=== PATIENT | female | born 1975 | race Caucasian/White ===

== ENCOUNTER 2018-10-07 17:48 | Emergency (ER) | payer BC, SELFPAY ==
--- NOTE | 2018-10-07 17:55 | NUR.NOTE ---
pt developed a fever Friday and a persistent cough pt called her PCP who told her she may have the flu so she came to the ER.
[2018-10-07 17:58] VITALS: BP 111/68; PULSE 108; TEMP 36.6; O2SAT 90
[2018-10-07] MEDS: Albuterol/Ipratropium 3 ML UPD VIAL 9 ML UPD ×2 (18:41→18:57)
[2018-10-07] MEDS: methylPREDNISolone SUCC 125 MG VIAL IVP (18:41)
[2018-10-07 19:20] LABS: INR 1.1 (0.9-1.1); PTT Activated 27.2 sec (21.0-31.4)
[2018-10-07 19:20] LABS: BE (Venous) -3.2 mmol/L (-3-3); HCO3 (Venous) 20 mmol/L (22-28); O2 Sat (Venous) 90 % (70-80); TCO2 (Venous) 18 mmol/L (22-29); pCO2 (Venous) 28 mm/Hg (34-47); pH (Venous) 7.47 (7.32-7.43); pO2 (Venous) 51 mm/Hg (28-44)
[2018-10-07 19:33] LABS: ALT 170 U/L (12-78); AST 204 U/L (15-37); Albumin 3.8 g/dL (3.4-5.0); Alkaline Phosphatase 129 U/L (46-116); Anion Gap 14.5 mmol/L (3-11); BUN 6 mg/dL (7-18); Bilirubin, Total 0.5 mg/dL (0.2-1.0); CO2 20.5 mmol/L (21.0-32.0); CREATININE 0.83 mg/dL (0.55-1.02); Calcium 8.9 mg/dL (8.5-10.1); Chloride 97 mmol/L (98-107); Glucose 136 mg/dL (70-100); Potassium 3.8 mmol/L (3.5-5.1); Sodium 132 mmol/L (136-145); Total Protein 8.3 g/dL (6.4-8.2)
[2018-10-07 19:46] LABS: D-Dimer 699 ng/mlFEU (<500)
[2018-10-07 19:48] LABS: Troponin I < 0.02 ng/mL (0.00-0.06)
[2018-10-07 20:13] VITALS: PULSE 116; O2SAT 95
[2018-10-07 20:15] VITALS: O2SAT 95
[2018-10-07] MEDS: Omnipaque 350 MG/ML 100 ML BTL IJ (20:29)
--- NOTE | 2018-10-07 20:32 | DI.CT_ITS ---
SYMPTOM/DIAGNOSIS: ELEVATED D DIMER, ? PE PE CHEST CT: CT angiography was performed with multi slice acquisition and multi planar and 3D reconstruction. CT angiography of the chest was performed with intravenous infusion of 100 cc's of Omnipaque 350. Images obtained through the upper abdomen show unremarkable appearance of visualized portions of the liver, spleen, pancreas, adrenals and kidneys. There is no evidence of pulmonary embolic disease. No thoracic aortic aneurysm or dissection. No mediastinal or hilar adenopathy. Tracheobronchial tree appears intact. No pleural effusion is seen. There are faint patchy areas of opacity in the lingula which may represent early pneumonia. Otherwise the lungs are clear. IMPRESSION: No evidence of pulmonary embolic disease. Findings raising the possibility of lingular pneumonia.
--- NOTE | 2018-10-07 20:45 | ED.GENADUL_ITS ---
Discharge Plan Disposition Patient Disposition: HOME Condition: Good Discharge Details Chief Complaint: Fever Clinical Impression: Pneumonia, Asthma exacerbation, Influenza A Primary Care Provider: Salvador Begum ED Provider: Franklin Verduzco Home Meds and New Rx's Prescriptions: New azithromycin 250 mg tablet 250 mg PO DAILY 4 Days Qty: 4 RF: 0 prednisone 20 mg tablet 60 mg PO DAILY 5 Days Qty: 15 RF: 0 No Action Advair Diskus 250-50 mcg/dose Blister With Device 1 inh INHALATION Q12H RF: 0 Ventolin HFA 90 mcg/actuation Hfa Aerosol Inhaler RF: 0 Discharge Instructions Instructions: Asthma (ED), Influenza (ED), Pneumonia (ED) Additional Instructions: Please use your inhaler every 4 hours for the next 2 days. Please take the steroid as directed. If you notice any worsening of your symptoms, or any new symptoms such as vomiting, diarrhea, fever, chills, shortness of breath, chest pain, numbness, weakness, or fainting , please return immediately to the emergency department for reevaluation. Please follow up with your primary care provider as soon as possible for reassessment and reevaluation. As always, it was a pleasure participating in your medical care today. Referrals: Salvador Begum [Primary Care Provider] - Medical Decision Making This is a pleasant 43-year-old female who presents for evaluation of mild cough, chest tightness, mild shortness of breath over the last 3 days in conjunction with the symptoms of malaise, aches and pains. She has a history of asthma. Physical exam demonstrates no wheezes rales or rhonchi, but minimally reduced breath sounds throughout. Patient does have mild tachycardia, initially demonstrated mild hypoxemia at 90% on room air. Signs and symptoms are concerning for asthma exacerbation however because of her vital sign abnormalities we did get a d-dimer to evaluate for potential PE. D-dimer was elevated CT angiogram was ordered. Pending results. EKG is benign for any acute process, no evidence of STEMI, troponin is normal. Patient does have elevation of AST and ALT which is slightly atypical. Bilirubin is normal. Renal function is normal. VBG demonstrates no signs of CO2 retention, and a clinical picture consistent with tachypnea. Patient's influenza is positive though, unfortunately she is out of the treatment range due to her 3 days of symptoms. After breathing treatments the patient is feeling much better, oxygen saturations are normal. We are waiting CT angios results at this time, however if there is no evidence of PE I feel she can be safely discharged home with a diagnosis of asthma exacerbation and influenza. 9:18p.m. CT scan has returned demonstrates no evidence of pulmonary embolism. Questionable early pneumonia. Oxygen has normalized, the patient is feeling much better after breathing treatments. I feel her signs and symptoms are consistent with influenza and asthma exacerbation. Patient will be given steroids, azithromycin, and continuation of her inhaler at home. I have extensively reviewed the treatment plan and discharge instructions with the patient and their family. I have addressed all patient concerns at this time. The patient and family was made aware of what symptoms to monitor for that would warrant a return to the emergency department. Discussed the plan with the patient and family, they demonstrate verbal understanding and agreement with our assessment and plan at this time. EKG 19: 12 Rate 121, sinus tachycardia, intervals normal except for minimal shortening of MA at 114, however no evidence of delta wave. No significant Q waves, ST elevation, or depressions. TECHNIQUE: Axial computed tomographic angiography images of the chest with intravenous contrast using CT angiography protocol. All CT scans at this facility use at least one of these dose optimization techniques: automated exposure control; mA and/or kV adjustment per patient size (includes targeted exams where dose is matched to clinical indication); or iterative reconstruction. Coronal and sagittal reformatted images were created and reviewed. MIP reconstructed images were created and reviewed. CONTRAST: 73 ml of [id number] administered intravenously. COMPARISON: No relevant prior studies available. FINDINGS: No evidence of pulmonary embolism. Normal thoracic aorta without aneurysm or dissection. There are patchy airspace opacities in the lingula. No pleural effusion or pneumothorax. There is fatty attrition of the liver. No fracture. IMPRESSION: 1. No evidence of pulmonary embolism. 2. Possible developing lingular infiltrate. HPI General Date/Time Provider Initiated Documentation: 10/07/18 18:10 . HPI Narrative: This is a pleasant 43-year-old female with a past medical history of asthma who presents today for 3 days of mild chest tightness, and cough as well as feelings of malaise, generalized aches and pains, and generalized not feeling well. Patient states that she has been taking her breathing treatments and these have been helping only a little bit. She denies any significant chest pressure, arm neck or shoulder pain, hemoptysis, or severe pleuritic chest pain. She denies any numbness tingling or weakness. She has not been on any antibiotics recently. She denies any recent admissions. Denies PE risk factors such as recent long car rides, immobilization, recent surgery, prior history of DVT or PE, family history of PE or DVT, morbid obesity, exogenous estrogen and smoking, hemoptysis, history of cancer. Patient denies any previous cardiac history. Patient denies any other complaints at this time. Related Data Home Medications Medication Instructions Recorded Confirmed albuterol sulfate [Ventolin HFA] 10/07/18 azithromycin 250 mg PO DAILY 4 Days #4 tab 10/07/18 fluticasone-salmeterol [Advair 1 inh INHALATION Q12H 10/07/18 10/07/18 Diskus] prednisone 60 mg PO DAILY 5 Days #15 tab 10/07/18 Previous Rx's Medication Instructions Recorded azithromycin 250 mg PO DAILY 4 Days #4 tab 10/07/18 prednisone 60 mg PO DAILY 5 Days #15 tab 10/07/18 Allergies Allergy/AdvReac Type Severity Reaction Status Date / Time No Known Allergies Allergy Unverified 10/07/18 20:13 General Stated Complaint: Fever SHANIQUE: 4 Review of Systems Review of Systems All systems reviewed & are unremarkable except as noted in HPI and below PFSH Social History Smoking/Tobacco Use Status: Never Exam Narrative Exam Narrative: 1.Const: Well-nourished, Well-developed, appearing stated age 2.Eyes: PERRL, no conjunctival injection, and symmetrical lids. 3.ENT: Atraumatic external nose and ears. Moist MM. Neck: Symmetric, trachea midline, No thyromegaly. 4.CVS: +S1/S2, No murmurs or gallops. Peripheral pulses 2+ and equal in all extremities. Brisk capillary refill in all extremities. 5.RESP: Unlabored respiratory effort. Clear to auscultation bilaterally. No wheezes rales or rhonchi, no signs of significant respiratory distress. 6.GI: Soft, Nontender/Nondistended, No hepatosplenomegaly. No guarding or rebound. 7.MSK: Normocephalic/Atraumatic, Extremities w/o deformity or ttp No cyanosis or clubbing, Normal movement of all extremities. No calf tenderness 8.Skin: Warm, Dry. No rashes or lesions. 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 Sensation grossly intact, no focal neurologic deficits. 10.Psych: (AAO) x3. Appropriate mood and affect Course Vital Signs Temperature 36.6 C 10/07/18 17:58 Pulse 108 H 10/07/18 17:58 Blood Pressure 111/68 10/07/18 17:58 Pulse Oximetry 90 L 10/07/18 17:58 Temperature 36.6 C 10/07/18 17:58 Temperature Source Skin 10/07/18 17:58 Pulse 116 H 10/07/18 20:13 Respiratory Effort 10/07/18 20:12 Blood Pressure 111/68 10/07/18 17:58 Blood Pressure Position Sitting 10/07/18 17:58 Pulse Oximetry 95 10/07/18 20:15 Oxygen Delivery Method Nasal Cannula 10/07/18 20:15 Oxygen Flow Rate 2 10/07/18 20:13 Fraction of Inspired Oxygen (FIO2) 2 10/07/18 20:15 Pain Level 6 10/07/18 17:58 Lab/Test Results Lab/Test Results: 10/07/18 19:00 Nasopharynx Influenza Types A,B Antigen - Final Laboratory Tests Range/Units 10/07/18 10/07/18 10/07/18 18:45 18:45 18:45 PT (9.3-11.0) sec INR (0.9-1.1) APTT (21.0-31.4) sec D-Dimer (<500) ng/mlFEU 699 H VBG pH Cancelled VBG pCO2 Cancelled VBG pO2 Cancelled VBG HCO3 Cancelled VBG Total CO2 Cancelled VBG O2 Saturation Cancelled VBG Base Excess Cancelled Sodium Cancelled Potassium Cancelled Chloride Cancelled Carbon Dioxide Cancelled Anion Gap Cancelled BUN Cancelled Creatinine Cancelled Estimated GFR/1.73 m2 Cancelled Glucose Cancelled Calcium Cancelled Total Bilirubin Cancelled AST Cancelled ALT Cancelled Alkaline Phosphatase Cancelled Troponin I Cancelled Total Protein Cancelled Albumin Cancelled Range/Units 10/07/18 10/07/18 10/07/18 18:45 19:10 19:10 PT (9.3-11.0) sec 11.0 INR (0.9-1.1) 1.1 APTT (21.0-31.4) sec 27.2 D-Dimer (<500) ng/mlFEU VBG pH 7.47 H VBG pCO2 28 L VBG pO2 51 H VBG HCO3 20 L VBG Total CO2 18 L VBG O2 Saturation 90 H VBG Base Excess -3.2 L Sodium 132 L Potassium 3.8 Chloride 97 L Carbon Dioxide 20.5 L Anion Gap 14.5 H BUN 6 L Creatinine 0.83 Estimated GFR/1.73 m2 >= 60.00 Glucose 136 H Calcium 8.9 Total Bilirubin 0.5 AST 204 H ALT 170 H Alkaline Phosphatase 129 H Troponin I < 0.02 Total Protein 8.3 H Albumin 3.8 POC- Test(urine) Negative
[2018-10-07] MEDS: Normal Saline 1,000 ML 1000 ML IV (20:46)
--- NOTE | 2018-10-07 21:05 | DI.VRAD_ITS ---
EXAM: CT Angiography Chest With Contrast EXAM DATE/TIME: 10/07/2018 7:50 PM CLINICAL HISTORY: 43 years old, female; Signs and symptoms; Other: Elevated d-dimer TECHNIQUE: Axial computed tomographic angiography images of the chest with intravenous contrast using CT angiography protocol. All CT scans at this facility use at least one of these dose optimization techniques: automated exposure control; mA and/or kV adjustment per patient size (includes targeted exams where dose is matched to clinical indication); or iterative reconstruction. Coronal and sagittal reformatted images were created and reviewed. MIP reconstructed images were created and reviewed. CONTRAST: 73 ml of [id number] administered intravenously. COMPARISON: No relevant prior studies available. FINDINGS: No evidence of pulmonary embolism. Normal thoracic aorta without aneurysm or dissection. There are patchy airspace opacities in the lingula. No pleural effusion or pneumothorax. There is fatty attrition of the liver. No fracture. IMPRESSION: 1. No evidence of pulmonary embolism. 2. Possible developing lingular infiltrate. Dictated and Authenticated by: Vince Shine MD. Ordering:NIKKO Reid MD
[2018-10-07] MEDS: Azithromycin 250 MG TAB 500 MG PO (21:31)
[2018-10-07 21:50] VITALS: BP 122/78; PULSE 90; RESP 16; TEMP 37.1; O2SAT 97
== END 2018-10-07 21:38 | disposition home or self-care (01) ==
PROVIDERS: Emergency Provider Student in an Organized Health Care Education/Training Program; PCP Specialist/Technologist Athletic Trainer
DX: J18.9 Pneumonia, unspecified organism (principal); J45.901 Unspecified asthma with (acute) exacerbation; J10.1 Influenza due to other identified influenza virus with other respiratory manifestations; R00.0 Tachycardia, unspecified
CPT/HCPCS: 71275; 80053; 81025; 82805; 87449; 93005; 94640; 96361; 96374; 99285; 84484; 85379; 85610; 85730; 93010; J2930; J3490; J7620

== ENCOUNTER 2019-04-02 13:32 | Outpatient (REF) | payer BC, SELFPAY ==
[2019-04-02 18:56] LABS: Anion Gap 10.6 mmol/L (3-11); BUN 12 mg/dL (7-18); CO2 25.4 mmol/L (21.0-32.0); CREATININE 0.68 mg/dL (0.55-1.02); Calcium 9.7 mg/dL (8.5-10.1); Chloride 100 mmol/L (98-107); Glucose 105 mg/dL (70-100); Potassium 4.5 mmol/L (3.5-5.1); Sodium 136 mmol/L (136-145)
== END 2019-04-02 13:52 ==
LOC: NCHCN 13:32
PROVIDERS: PCP Specialist/Technologist Athletic Trainer; Visit Provider Specialist/Technologist Athletic Trainer
DX: I10 Essential (primary) hypertension (principal)
CPT/HCPCS: 80048

== ENCOUNTER 2021-05-24 18:08 | Outpatient (REF) | payer BC, SELFPAY ==
[2021-05-24 19:32] LABS: Anion Gap 8.5 mmol/L (3-11); BUN 13 mg/dL (7-18); CO2 29.5 mmol/L (21.0-32.0); CREATININE 0.7 mg/dL (0.55-1.02); Calcium 9.7 mg/dL (8.5-10.1); Chloride 99 mmol/L (98-107); Glucose 98 mg/dL (74-106); Potassium 4.1 mmol/L (3.5-5.1); Sodium 137 mmol/L (136-145)
== END 2021-05-24 18:09 | disposition home or self-care (01) ==
LOC: NCHCN 18:08
PROVIDERS: PCP Specialist/Technologist Athletic Trainer; Visit Provider Nurse Practitioner Family
DX: I10 Essential (primary) hypertension (principal); J45.40 Moderate persistent asthma, uncomplicated; F32.9 Major depressive disorder, single episode, unspecified
CPT/HCPCS: 80048

== ENCOUNTER 2023-03-06 13:17 | Outpatient (REF) | payer BC, SELFPAY ==
--- NOTE | 2023-03-06 09:00 | PAPFT_PTH ---
PATIENT: Corinna Romero LOC: [facility]#:[id number] AGE/SX: 47/F ROOM: RE03/06/[address]: Fide Anderson : 1975 BED: DIS: 03/06/2023 SPEC #: [id number] RECD: 03/06/23 17:58 STATUS: ANAMARIA REQ #: [id number] KIM: 03/06/23 09:[address]: Fide Anderson DEPT: [facility] Cytology RECD BY: Lisa Shay ENTERED: 03/06/23 17:58 SP TYPE: PAPFT OTHR DR: Salvador Begum Tissues: 1 - CX/ENDOCX FOR PAP SMEARS Procedures: PAP THIN PREP/UVM Screening Comments: [id number] (HPV - UNSUITABLE FOR ANALYSIS, VIAL IS TOO OLD)
[2023-03-06 18:13] LABS: ALT 38 U/L (14-59); AST 80 U/L (15-37); Albumin 4.1 g/dL (3.4-5.0); Alkaline Phosphatase 264 U/L (46-116); Anion Gap 10.1 mmol/L (3-11); BUN 32 mg/dL (7-18); Bilirubin, Total 1.3 mg/dL (0.2-1.0); CO2 32.9 mmol/L (21.0-32.0); CREATININE 1.5 mg/dL (0.55-1.02); Calcium 10.2 mg/dL (8.5-10.1); Calculated LDL 220 mg/dL (<100); Chloride 89 mmol/L (98-107); Cholesterol 335 mg/dL (<200); Estimated GFR 42.99 (mL/min/1.73m2); Glucose 173 mg/dL (74-106); HDL Cholesterol 84 mg/dL (40-60); Potassium 3.8 mmol/L (3.5-5.1); Sodium 132 mmol/L (136-145); Total Protein 9.3 g/dL (6.4-8.2); Triglyceride 156 mg/dL (<150)
== END 2023-03-06 13:18 | disposition home or self-care (01) ==
LOC: NCHCN 13:17
PROVIDERS: PCP Specialist/Technologist Athletic Trainer; Visit Provider Nurse Practitioner Family
DX: Z00.00 Encounter for general adult medical examination without abnormal findings (principal); I10 Essential (primary) hypertension; Z12.4 Encounter for screening for malignant neoplasm of cervix
CPT/HCPCS: 80053; 80061; 88142

== ENCOUNTER 2023-12-23 07:48 | Day surgery (SDC) | payer BC, SELFPAY ==
--- NOTE | 2023-12-22 21:55 | COLE_ITS ---
Date of service: 12/23/23 Time of Service: 09:39 Colonoscopy Report Date of procedure: 12/23/23 Pre-op diagnosis general: +Cologuardd Post-op diagnosis procedure note: other (Polyps) Surgeon: Tootie España Anesthesia Type: General:No Airway Estimated blood loss (mL): 1 Pathology: other Complications: None Disposition: same day Prep: Miralax/Dulcolax Retraction Time: 14 Procedure Description: After informed consent was obtained the patient was taken to the procedure room and placed in a left decubitous position. Monitors were applied and a time out was done. The patients name, date of , procedure, allergies to medications and metal in their body was reviewed. The patient was then sedated. Once sedated and comfortable a rectal exam was done. External exam was normal. Internal exam revealed a normal sphincter tone and no palpable masses. The scope was then introduced and retrofelexed. Grade 1 x 1 column internal hemorrhoids, and an internal hemorrhoidal tag Were identified. The scope was then advanced to the cecum without difficulty. The TI and appendiceal orifice were identified. The scope was then slowly retracted over 14 minutes back into the rectum. Polyps were removed at she had a 1 cm pedunculated polyp at 30 cm that is removed with a cold snare. There is also a flat 0.5 cm polyp that is removed with a cold biting forcep. All specimens are retrieved and no bleeding is noted. There are no AVMs or diverticula noted.. The scope was removed and the patient was woken up and taken back to Same day surgery in stable condition. The patient tolerated the procedure well and there were no immediate complications. Follow up: The patient should follow up in 5-7 years unless they develop changes in bowel habits or other new gastrointestinal complaints. Patten Bowel Prep Patten Bowel Prep Right Colon: 3 Left Colon: 3 Transverse Colon: 3 Total Score: 9
--- NOTE | 2023-12-22 21:56 | PDOC.DSDIS_ITS ---
Date of service: 12/23/23 Time of Service: 09:44 Discharge Plan Disposition Patient Disposition: Home Condition: Good Discharge Details Reason For Visit: colon scope Attending Provider: Tootie España Primary Care Provider: Fide Anderson Home Meds and New Rx's Prescriptions: Continued Centrum 18-400 mg-mcg tablet 1 tab PO DAILY chlorthalidone 25 mg tablet 25 mg PO DAILY citalopram 10 mg tablet 10 mg PO DAILY losartan 50 mg tablet 50 mg PO DAILY budesonide-formoterol [Symbicort] 160-4.5 mcg/actuation HFA aerosol inhaler 2 puff inhalation BID albuterol sulfate [Ventolin HFA] 90 mcg/actuation Hfa Aerosol Inhaler 1 inh inhalation DIRECTED PRN All Day Allergy (cetirizine) 10 mg capsule 10 mg PO DAILY PRN Discontinued bisacodyl [Dulcolax (bisacodyl)] 5 mg tablet,delayed release (DR/EC) 5 mg PO ONCE Qty: 4 0RF Rx Instructions: Take per colonoscopy instructions provided by ordering providers office polyethylene glycol 3350 17 gram/dose powder 17 g PO ONCE Qty: 238 0RF Rx Instructions: Take per colonoscopy instructions provided by ordering providers office Discharge Instructions Additional Instructions: DSU Colonoscopy Post- Op Instructions Instructions for Everyone who is given Anesthesia: For your safety, please do the following for the next twenty-four (24) hours: *Do Not operate a motor vehicle (car, truck, motorcycle, etc.) *Do Not drink alcoholic beverages or use any recreational drugs for the first 24 hours or while taking pain medications. The medications in your body may have a reaction that can be dangerous. *Do Not make any important decisions or sign any important papers. Findings: x1 colon polyp Follow up: My office will send you a letter in 3 weeks time with the results of the pathology and when we want you to repeat the colonoscopy, most likely 5 to 7 years time. 1. No lifting over 20 pounds or strenuous activity for the first 24 hours after your procedure. After 24 hours there are no restrictions on your activity but you may feel fatigued for a few days. 2. After you arrive home you may have a light meal and return to your normal diet as you can tolerate it without feeling sick to your stomach. 3. You may have a bloated, gaseous feeling in your belly (abdomen) after a colonoscopy. Passing gas and belching will help. Walking or lying down on your left side with your knees flexed may relieve the discomfort. Call the office at [phone] (Office) or [phone] (Hospital) right away if you notice any of the following: a.Vomiting of blood or ?coffee ground stools?. b.Rectal bleeding 1Tbsp, blood clots or continuous bleeding. c.Severe belly (abdominal) pain. d.A hard distended belly (abdomen) and an inability to pass gas. 4. Please don?t expect to have a normal BM (bowel movement) for 2-3 days after your procedure. 5. If there are questions regarding the findings of your procedure, please contact your doctor 6. If you are unable to contact your doctor with a problem, contact the hospital at [phone]. 7. Continue all your regular medications unless directed otherwise. I understand the above instructions and have no questions. Signature of Patient or Adult Escort Name of Responsible Adult Escort Signature of Nurse Date/Time Activity:: see above Diet:: see above Discharge Orders Discharge Orders: Discharge Order (Routine); Ordered 12/22/23 Ordered By: Tootie España DS: Diagnosis Discharge Diagnosis (1) Positive colorectal cancer screening using Cologuard test: Status: Acute Asessment and Plan: The patient is seen and examined after their colonoscopy.? The patient has been able to pass gas.? They are not having abdominal pain.? They have been able to tolerate liquids and a snack.? They do not have any nausea or vomiting.? They are not having any chest pain or shortness of breath.??? They are not having any rectal bleeding. Their vital signs have been stable-see nursing notes. We discussed findings during their colonoscopy, and any biopsies that were done/polyps that were removed. The patient will be sent a letter with any biopsy results, and when to repeat the colonoscopy.-see discharge instructions. Patient was given explicit instructions to follow-up regarding colonoscopy-refer to discharge instructions.? We reviewed resumption of medications. Patient verbalized understanding and discharged in stable and satisfactory condition- See nursing notes. (2) Essential (primary) hypertension: (3) Cardiomegaly: (4) Hyperlipidemia: (5) Steatosis of liver: (6) Moderate persistent asthma, uncomplicated: (7) Alkaline phosphatase elevation: (8) Adenomatous polyps: Status: Acute
--- NOTE | 2023-12-23 08:15 | ANES.PREOP_ITS ---
General Info Date of Service Date Performed: 12/23/23 Height: 5 ft 4 in Weight: 75.296 kg Body Mass Index (BMI): 28.5 Surgical Procedure: Operation Date: 12/23/23 09:35 Proposed Procedure Side Surgeon corinne España, DO Meds Allergies and Home Medications Allergies Allergy/AdvReac Type Severity Reaction Status Date / Time No Known Allergies Allergy Verified 12/23/23 08:27 Home Medication Medication Instructions Recorded albuterol sulfate 90 mcg/actuation 1 inh inhalation DIRECTED PRN 10/07/18 aerosol inhaler (Ventolin HFA) budesonide-formoterol HFA 160 2 puff inhalation BID 10/20/23 mcg-4.5 mcg/actuation aerosol inhaler (Symbicort) chlorthalidone 25 mg tablet 25 mg PO DAILY 10/20/23 citalopram 10 mg tablet 10 mg PO DAILY 10/20/23 losartan 50 mg tablet 50 mg PO DAILY 10/20/23 multivitamin-ferrous 1 tab PO DAILY 10/20/23 fumarate-folic acid 18 mg-400 mcg tablet (Centrum) cetirizine 10 mg capsule (All Day 10 mg PO DAILY PRN 12/19/23 Allergy (cetirizine)) Current Visit Medications: Current Medications Generic Name Dose Route Start Last Admin Trade Name Freq PRN Reason Stop Dose Admin Hyoscyamine Sulfate 0.125 mg 12/23/23 10:00 Hyoscyamine 0.125 Mg Sl/Oral/Chew SL 01/22/24 09:59 DIRECTED PRN Ringer's Solution 1,000 mls @ 80 mls/hr 12/23/23 06:00 IV 01/21/24 23:59 [facility] IV Miscellaneous Supplies 1 each 12/23/23 06:00 Iv Access IV 01/21/24 23:59 DIRECTED MARIO Ondansetron HCl 4 mg 12/23/23 10:00 Ondansetron 4 Mg/2 Ml Vial IVP 01/22/24 09:59 Q4H PRN PRN Nausea / Vomiting Sodium Chloride 0 ml 12/23/23 06:00 Normal Saline Flush 10 Ml Syr IV 01/21/24 23:59 PRN PRN Sodium Chloride 0 ml 12/23/23 06:00 Normal Saline 10 Ml Vial IJ 01/21/24 23:59 DIRECTED PRN Sterile Water 0 ml 12/23/23 06:00 Water,Injection,Sterile 10 Ml Vial IJ 01/21/24 23:59 DIRECTED PRN PFSH Active Problems Active Problems: Problem Status Onset Code Positive colorectal cancer screening using Cologuard test R19.5 Medical History Medical History Major depressive episode Elevated liver enzymes Alkaline phosphatase elevation Spondylosis Cardiomegaly Pt. denies this states she has never even heard of this. Pt. states she has never had any issues with her heart. Moderate persistent asthma, uncomplicated Essential (primary) hypertension Steatosis of liver Hyperlipidemia Tobacco Smoking/Tobacco Use Status: Never Alcohol Alcohol Intake: current Alcohol intake frequency: holidays/special occasions only Substance Use Substance use: Never Substance use type: does not use Vital Signs and Lab Results Vital Signs Most Recent Vital Signs in EMR: Temp Pulse Resp BP Pulse Ox 36.7 C 66 16 140/94 H 99 12/23/23 08:31 12/23/23 08:31 12/23/23 08:31 12/23/23 08:31 12/23/23 08:31 Lab Results Blood Type / Crossmatch: No Data to Display Complete Blood Count: No Data to Display Complete Metabolic Panel: No Data to Display Liver Function Panel: No Data to Display Coagulation Panel: No Data to Display Cardiac Panel: No Data to Display Arterial Blood Gas: No Data to Display Venous Blood Gas: No Data to Display Pancreas Panel: No Data to Display Thyroid Panel: No Data to Display Infectious Disease: No Data to Display Blood Cultures: No Data to Display Toxicology Panel: No Data to Display Panel: No Data to Display Anesthesia Assessment and Plan Anesthesia History Personal History: No History of General Anesthesia Family History: No Family History of Anesthesia Complications Exercise Tolerance Exercise Tolerance: Metabolic Equivalents>4 Pertinent Negatives Pertinent Negatives: No Symptoms of GERD, No Major Cardiovascular Symptoms or Complaints, No Major Pulmonary Symptoms or Complaints and No History of CVA/TIA Cardiac & Pulmonary Exam Cardiac Exam: Normal S1/S2 Heart Sounds Pulmonary Exam: Clear Bilateral Breath Sounds Implantable Cardiac Device Does patient have a Pacemaker or an ICD?: No Airway Exam Known Difficult Airway: No Mallampati Class: 3 Mouth Opening: Normal (> 3cm) Thyromental Distance: Less than 3 cm Neck Range of Motion: Full ROM Neck Circumference: Normal Teeth Condition: Normal Dentition (pt reports one cracked molar on right side ) ASA Classification ASA Score: ASA 2 Emergency Case?: No NPO Status NPO Status: NPO Clears >2 hours, Solids >8 hours Status Status: Negative HCG Anesthesia Plan Resuscitation Status: Full Code Anesthesia Technique: General Anesthesia Airway Planned: Natural Airway Monitors Used: Standard Monitors Preoperative Comments:: 48 yo female with positive [place] guard for colo. Sig PMHx: HTN (losartan, citalopram), RAD (Symbicort, albuterol), depression, spondylosis. never smoker,
[2023-12-23 08:31] VITALS: BP 140/94; PULSE 66; RESP 16; TEMP 36.7; O2SAT 99
[2023-12-23] MEDS: Lactated Ringers 1,000 ML 80 ML IV (08:52)
[2023-12-23 09:02] VITALS: BMI 28.5
--- NOTE | 2023-12-23 09:25 | BOWEL_PTH ---
PATIENT: Corinna Romero LOC: [facility] U#:[id number] AGE/SX: 48/F ROOM: RE12/23/[address]: Tootie España : 1975 BED: DIS: 12/23/2023 SPEC #: [id number] RECD: 12/23/23 12:17 STATUS: ANAMARIA RE #: [id number] KIM: 12/23/23 09:[address]: Tootie España DEPT: Surgical Specimen RECD BY: Lisa Shay ENTERED: 12/23/23 12:18 SP TYPE: Bowel OTHR DR: Fide Anderson Tissues: 1 - BIOPSY BOWEL Procedures: GROSS AND MICRO LEVEL 4 Comments: [id number]
[2023-12-23 09:32] VITALS: BP 107/79; PULSE 65; RESP 16; TEMP 36.4; O2SAT 98
--- NOTE | 2023-12-23 09:43 | W.ANESPOSTOP ---
Postoperative Evaluation Date, Time and Location Date Performed: 12/23/23 Time Performed: 09:32 Patient Location: Day Surgery Unit Vital Signs Most Recent Imported Vital Signs: Most Recent Vital Signs Temp Pulse Resp BP Pulse Ox 36.4 C L 65 16 107/79 98 12/23/23 09:32 12/23/23 09:32 12/23/23 09:32 12/23/23 09:32 12/23/23 09:32 Pain Score Most Recent Pain Score: Most Recent Pain Score Pain Level 0 12/23/23 09:32 Assessment Mental Status: Awake (Alert & Oriented to Patient Baseline) Airway and Respiratory Function: Patent airway with normal (patient baseline) respiratory exam Cardiovascular Function: Hemodynamically Stable Hydration Status: Adequately Hydrated Nausea & Vomiting: No Nausea or Vomiting Pain: Pt. Denies Any Pain Peripheral Nerve Block: Patient did not receive a nerve block
[2023-12-23 10:05] VITALS: BP 128/88; PULSE 67; RESP 16; TEMP 36.3; O2SAT 99
== END 2023-12-23 10:19 | disposition home or self-care (01) ==
LOC: SUR 07:49
PROVIDERS: PCP Nurse Practitioner Family; Visit Provider Surgery
PROC: 0DJD8ZZ Inspection of Lower Intestinal Tract, Via Natural or Artificial Opening Endoscopic (ICD-10-PCS; CPT 45378; principal; 2023-12-23 09:30)
DX: D37.4 Neoplasm of uncertain behavior of colon; Z12.11 Encounter for screening for malignant neoplasm of colon; I10 Essential (primary) hypertension
CPT/HCPCS: 45385; 45380; 81025; 88305; J2704

== ENCOUNTER 2024-04-02 14:42 | Outpatient (REF) | payer BC, SELFPAY ==
[2024-04-02 16:49] LABS: HCT 37.1 % (36.0-46.0); HGB 12.8 g/dL (11.2-15.7); MCH 33.3 pg (27.0-33.0); MCHC 34.5 % (32.0-36.0); MCV 97 fL (80-95); MPV 10.1 fL (8.0-11.0); Platelet Count 356 10^3/uL (130-400); RBC 3.84 10^6/uL (3.93-5.22); RDW 11.6 % (11.7-14.6); RDW-SD 40.9 fL; WBC 5.75 10^3/uL (4.4-10.8)
[2024-04-02 17:20] LABS: Iron 127 ug/dL (50-170); Total Iron Binding Capacity 393 ug/dL (250-450); Transferrin Sat 32 % (15-50)
[2024-04-02 17:32] LABS: ALT 72 U/L (14-59); AST 77 U/L (15-37); Albumin 4.7 g/dL (3.4-5.0); Alkaline Phosphatase 340 U/L (46-116); Anion Gap 12.1 mmol/L (3-11); BUN 19 mg/dL (7-18); Bilirubin, Direct 0.7 mg/dL (0.0-0.2); Bilirubin, Total 1.93 mg/dL (0.2-1.0); CO2 26.9 mmol/L (21.0-32.0); Calcium 10.4 mg/dL (8.5-10.1); Calculated LDL 148 mg/dL (<100); Chloride 90 mmol/L (98-107); Cholesterol 310 mg/dL (<200); Estimated GFR 69.49 (mL/min/1.73m2); Ferritin 463 ng/mL (8-252); Glucose 136 mg/dL (74-106); HDL Cholesterol 146 mg/dL (40-60); Potassium 4.2 mmol/L (3.5-5.1); Sodium 129 mmol/L (136-145); TSH (W/Ref FT4) 2.09 uIU/mL (0.36-3.74); Total Protein 9.4 g/dL (6.4-8.2); Triglyceride 83 mg/dL (<150); Vitamin D 25 Total 16.9 ng/mL (30-100)
[2024-04-02 17:53] LABS: Hemoglobin A1C 5.3 % (<5.7)
[2024-04-05 11:20] LABS: Hepatitis A Antibody IgM Negative (Negative); Hepatitis B Core Antibody Negative (Negative); Hepatitis B surface Ag Negative (Negative); Hepatitis C Ab w Rflx HCV PCR Negative (Negative)
== END 2024-04-02 14:43 | disposition home or self-care (01) ==
LOC: NCHCN 14:42
PROVIDERS: PCP Nurse Practitioner Family; Visit Provider Nurse Practitioner Family
DX: E78.5 Hyperlipidemia, unspecified (principal); R74.01 Elevation of levels of liver transaminase levels; I10 Essential (primary) hypertension; Z00.00 Encounter for general adult medical examination without abnormal findings
CPT/HCPCS: 80053; 80061; 82306; 85027; 86704; 86709; 86803; 87340; 82248; 82728; 83036; 83540; 83550; 84443